=== PATIENT | female | born 1960 | race Caucasian/White ===

== ENCOUNTER → 2016-07-06 | Outpatient (CLI) | payer OTHER ==
[~2016-07-06] MED LIST: AMOX875T PO; CYCL10TA6 PO; GADAVIST IV PRN; LEVO100T7 PO; MULT-506 PO; OMEG10003 PO; OXYC-57 PO; RIZA10TA18 PO; RIZA10TA18 SL
--- NOTE | 2016-07-06 14:34 | DIAGNOSTIC IMAGING REPORT ---
LUMBAR SPINE MRI WITH AND WITHOUT CONTRAST HISTORY: Back pain. M54.16 Lumbar radiculopathy TECHNIQUE: Multiplanar multisequence MRI of the lumbar spine was performed both before and after the intravenous administration of contrast. COMPARISON: None. FINDINGS: For the purpose of the report the L5-S1 disc space will be located on axial image 27 of 30. Findings consistent with a posterior laminectomy and fusion at L4-L5. Disc spacers present at the L4-L5 disc level. Remaining vertebral bodies are unremarkable. There is no evidence for bone marrow replacing process. Is no evidence for abnormal postcontrast enhancement based on the sagittal scans. L1-L2: No significant central canal or neural foraminal narrowing. L2-L3: No significant central canal or neural foraminal narrowing. L3-L4: No significant central canal or neural foraminal narrowing. L4-L5: Posterior laminectomy and fusion. No evidence for abnormal postcontrast enhancement. L5-S1: No significant central canal or neural foraminal narrowing. IMPRESSION: 1. Operative changes consistent with an L4-L5 fusion. 2. No evidence for abnormal postcontrast enhancement. 3. No evidence for disc herniation or significant spinal stenotic change 4. Moderate degenerative change posterior facets L5-S1 Electronically signed by: Florentin Mccarthy M.D. 07/06/2016 2:33 PM Dictated Date/Time: 07/06/2016 2:28 PM
--- NOTE | 2016-07-06 15:03 | DIAGNOSTIC IMAGING REPORT ---
MRI OF THE CERVICAL SPINE COMBO CLINICAL HISTORY: Cervical radiculopathy. COMPARISON STUDY: MRI of the cervical spine dated 03/07/2014. TECHNIQUE: MRI of the cervical spine is performed utilizing various T1 and T2-weighted sequences in the axial and sagittal planes. Contrast-enhanced sequences are acquired following the IV administration of 6 cc of Gadavist. FINDINGS: Cervical spine: Vertebral body height and alignment are maintained throughout the cervical spine. Normal marrow signal intensity is preserved throughout the visualized bony structures. The atlantodental articulation appears maintained. The spinous processes are intact. A small hemangioma is noted in the body of T4. Intervertebral discs: There is mild degenerative disc desiccation throughout the cervical spine. There is only minimal loss of height at C5-C6 and C6-C7. Spinal cord: The cervical spinal cord is normal in morphology and signal intensity. No abnormal enhancement is identified on the postcontrast sequences. C2-C3: Unremarkable. C3-C4: Unremarkable. C4-C5: Predominant facet arthropathy causes minimal right-sided neural foraminal narrowing. The central canal is patent. C5-C6: A posterior disc osteophyte complex eccentric to the left abuts the ventral cord. Uncovertebral and facet arthropathy causes mild right greater than left neural foraminal stenosis. C6-C7: A posterior disc osteophyte complex abuts the ventral cord. Uncovertebral and facet arthropathy cause moderate right greater than left neural foraminal stenosis. C7-T1: Unremarkable. Soft tissues: The prevertebral and paraspinous soft tissues are normal as visualized. Brain parenchyma: Partially imaged brain parenchyma at the skull base is within normal limits. IMPRESSION: 1. Cervical spondylosis as above, greatest at C5-C6 and C6-C7. This has only minimally progressed from the 2014 examination. 2. The cervical spinal cord is normal in morphology and signal intensity. Dictated: 07/06/2016 2:40 PM Transcribed: 07/06/2016 3:03 PM [email or web address] Electronically signed by: Fredy Borges M.D. 07/06/2016 3:24 PM Dictated Date/Time: 07/06/2016 2:40 PM
== END | disposition home or self-care (01) ==
LOC: C.MRI 12:55
PROVIDERS: ATTEND Psychiatry & Neurology Neurology
DX: M54.12 Radiculopathy, cervical region (principal); M54.16 Radiculopathy, lumbar region; M51.37 Other intervertebral disc degeneration, lumbosacral region

== ENCOUNTER → 2016-08-31 | Outpatient (CLI) | payer OTHER ==
[~2016-08-31] MED LIST changes: -GADAVIST IV PRN
[2016-08-31 17:30] LABS: BASO % 0.5 %; BASO ABS # 0.03 K/uL (0-0.2); COMPLETE YES; EOS % 1.3 %; HEMATOCRIT 37.6 % (37-47); IG% 0.2 %; LYMPH % 23.9 %; MEAN CELL VOLUME 89.5 fL (80-100); MEAN CORPUSCULAR HEMOGLOBIN 30.2 pg (25-34); MEAN CORPUSCULAR HGB CONC 33.8 g/dl (32-36); MEAN PLATELET VOLUME 9.1 fL (7.4-10.4); MONO % 7.3 %; NEUT % 66.8 %; PLATELET COUNT 377 K/uL (130-400); WHITE BLOOD COUNT 6.28 K/uL (4.8-10.8)
== END | disposition home or self-care (01) ==
LOC: C.LAB1850 16:11
PROVIDERS: ATTEND Internal Medicine
DX: E03.9 Hypothyroidism, unspecified (principal); E53.8 Deficiency of other specified B group vitamins; E55.9 Vitamin D deficiency, unspecified; G43.009 Migraine without aura, not intractable, without status migrainosus; R70.0 Elevated erythrocyte sedimentation rate; R39.9 Unspecified symptoms and signs involving the genitourinary system

== ENCOUNTER 2016-10-05 20:26 | Emergency (ER) | payer OTHER ==
[~2016-10-05] VITALS: Ht 156.2 cm; Wt 66.6 kg
[~2016-10-05 20:26] MED LIST changes: -AMOX875T PO; -LEVO100T7 PO; -RIZA10TA18 PO
[2016-10-05 20:56] VITALS: TEMP 36.8; Ht 156.2 cm; Wt 66.6 kg
[2016-10-05] MEDS ORDERED: SODIUM CHLORIDE 0.9% 1000ML 1,000 ML IV STA (21:53)
[2016-10-05] MEDS ORDERED: PROCHLORPERAZINE 5 MG/ML 2 ML VIAL IV STA (21:53)
[2016-10-05] MEDS ORDERED: KETOROLAC TROMETHAMINE 30 MG/ML VIAL IV STA (21:53)
[2016-10-05] MEDS ORDERED: DiphenhydrAMINE HCL 50 MG/ML VIAL IV STA (21:53)
[2016-10-05] MEDS ORDERED: AMOX875T PO (22:42)
[2016-10-05] MEDS ORDERED: AMOXICIL/CLAVU 875MG HOME PACK PO STA (22:43)
--- NOTE | 2016-10-05 22:43 | EMERGENCY ROOM VISIT NOTE ---
ED Visit Note First contact with patient: 21:45 CHIEF COMPLAINT: Migraine headache HISTORY OF PRESENT ILLNESS: This 56-year-old female patient presented to the emergency department via taxi with a sudden onset of a severe generalized headache that started this morning. The patient states the migraine is similar to their typical migraines, and notes that all of her migraines are of sudden onset. She is tried Maxalt, 2 Sudafed, 2 ibuprofen and Benadryl around 530-6 PM without relief. There has been associated photophobia, phonophobia, nausea and vomiting. This is not the worse headache of her life. She declines narcotic medication and would like the headache cocktail to include Compazine, Benadryl and Toradol. She states she did receive this on a previous visit and in [place] with good relief of her headache. She follows with Dr. Lara, and saw him approximately 3 weeks ago. She denies any fever, chills, chest pain , shortness of breath, abdominal pain, back pain. The patient denies fever or chills recently, and there is no weakness or numbness of the extremities. There is no difficulty with speech or vision. No trauma to the head and no neck pain. The pain is severe, constant, and it is slowly increasing in severity. The patient rates the pain as constant and non-/10. The patient has taken the above listed medications without relief. This is not the worst headache of the life and is similar to previous migraines. Previous imaging studies of the brain have been reviewed. REVIEW OF SYSTEMS: A review of systems was performed with positives and pertinent negatives listed in the history of present illness. All other systems were reviewed and are negative. ALLERGIES: As noted below MEDICATIONS: As noted below PMH: Migraines, 13 surgeries SOCIAL HISTORY: Patient lives at home with self and denies tobacco and alcohol use. PHYSICAL EXAM: Vital Signs: Reviewed Nurse's notes, vital signs stable. GENERAL : 56-year-old female, who appears in pain, but non toxic in appearance and in no acute distress. MENTAL STATUS: Alert, oriented, and coherent. HEENT: Normocephalic. PERRLA. EOMI. Nares patent without nuchal rigidity. Tympanic membranes pearly hardy without erythema or effusion bilaterally. Mucous membranes moist. NECK: Supple, no nuchal rigidity, nontender, no lymphadenopathy. HEART: Regular rhythm and normal rate without murmurs, ectopy, gallops, or rubs. LUNGS: Clear to auscultation bilaterally without wheezes, rales or rhonchi. No dullness to percussion. No accessory muscle use. No retractions. SKIN: Normal. NEUROLOGICAL: Pupils are round, equal and react to light.The patient moves all extremities well and the gait is normal. EMERGENCY DEPARTMENT COURSE: I examined the patient. The patient has been here for migraines in the past, and states this is a typical migraine for her. She is seeking help with the pain that is not alleviated by [id number] medication. She requests a headache cocktail to include items such as Compazine , Benadryl and Toradol and specific states she does not want narcotic medication. I reviewed her previous imaging studies, and do not believe that an ear warranted at this time. She does not have any fever or chills. There is no evidence of emergent cause of the headache at this time. She will be treated with 30 mg of Toradol IV, as it has been 4 hours since she had taken the other NSAIDs, she'll be given 25 mg of Benadryl IV as well as 10 mg of Compazine and hydrated with 1 L of normal saline. She was reevaluated and stated that her headache has significantly improved, and that her pain was a 0/ 10. The differential diagnosis includes acute intracranial bleed, meningitis, encephalitis, mass or mass effect, sinusitis, infection, tumor, headache, temporal arteritis and carbon monoxide exposure, and migraine. Prior to discharge the patient noted that she was experiencing sinus congestion for the past 10 days, and had yellowish greenish drainage from the nose. Chest congestion has diminished. She is concerned about acute sinusitis. For this I will be treating her with Augmentin 10 days. 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 In the evaluation and treatment of this patient, the following differential diagnoses were considered: Migraine Headache, Intracranial Hemorrhage, Subdural Hematoma, Subarachnoid Hemorrhage, Cerebral Aneurysm, Temporal/Giant Cell Arteritis, Tension Headache, Meningitis, Encephalitis, or Hydrocephalus. Problem List Medical Problems: (1) Anxiety State Nos Status: Chronic (2) Baseline Right Leg Weakness Status: Chronic (3) Cervicalgia Status: Chronic (4) Chronic Back Problems with Multiple Surgeries Status: Chronic (5) Depressive Disorder Nec Status: Chronic (6) Hypothyroidism Nos Status: Chronic (7) Lumbago Status: Chronic (8) Migraine Status: Chronic (9) RECOTOCELE Status: Chronic (10) RECTOCELE Status: Resolved (11) Sinusitis Status: Chronic Current/Historical Medications Scheduled Amoxicillin & Pot Clavulanate (Augmentin 875-125 mg), 1 TAB PO BID Cyclobenzaprine Hcl (Flexeril), 10 MG PO QID Multivitamin (Multivitamin), 1 TAB PO DAILY [place]-3 Fatty Acids ([place] Oil-1000), 1,000 MG PO TID Scheduled PRN Oxycodone/Acetaminophen 5MG/325MG (Percocet 5MG/325MG), 0.5-2 TABLETS PO for Pain Miscellaneous Medications Rizatriptan Benzoate (Maxalt), 10 MG SL Allergies Coded Allergies: CI Pigment Blue 63 (Verified Allergy, Severe, RASH AND SWELLING, 02/25/16) Ciprofloxacin (Verified Allergy, Severe, RED, SWOLLEN ARM, 02/25/16) Duloxetine (Verified Allergy, Severe, RASH AND SWELLING, 02/25/16) Topiramate (Verified Allergy, Mild, RASHES, 02/25/16) Gabapentin (Verified Allergy, Unknown, RASH AND SWELLING, 02/25/16) Vital Signs Date Time Temp Pulse Resp B/P Pulse Ox O2 Delivery O2 Flow Rate FiO2 10/05/16 23:00 91 20 110/88 98 Room Air 10/05/16 20:56 36.8 101 19 119/88 99 Room Air Medications Administered Medications (Trade) Dose Ordered Sig/Diane Route Start Time Stop Time Status Last Admin Dose Admin Prochlorperazine Edisylate (Compazine Inj) 10 mg NOW STAT IV 10/05/16 21:53 10/05/16 21:55 DC 10/05/16 22:16 10 MG Diphenhydramine HCl (Benadryl Inj) 25 mg NOW STAT IV 10/05/16 21:53 10/05/16 21:55 DC 10/05/16 22:17 25 MG Ketorolac Tromethamine 30 mg 30 mg NOW STAT IV 10/05/16 21:53 10/05/16 21:55 DC 10/05/16 22:17 30 MG Sodium Chloride (Nss 1000ml) 1,000 ml @ 999 mls/hr Q1H1M STAT IV 10/05/16 21:53 10/05/16 22:53 DC 10/05/16 22:20 999 MLS/HR Amoxicillin/ Clavulanate Potassium (Augmentin 875MG Home Pack) 1 homepack UD STAT PO 10/05/16 22:43 10/05/16 22:44 DC 10/05/16 23:03 1 HOMEPACK Departure Information Impression Primary Impression: Headache Additional Impression: Sinusitis Dispostion Home / Self-Care Condition GOOD Prescriptions Amoxicillin & Pot Clavulanate (Augmentin 875-125 mg) 1 Tab Tab 1 TAB PO BID for 9 Days, #18 TAB Prov: Marcelo Zamarripa PA-C 10/05/16 Referrals RV. Reese MD (PCP) Patient Instructions My [facility] Additional Instructions You have been treated in the Emergency Department for a Headache and sinus infection. You have received pain medicine in the emergency department which impairs your ability to operate a vehicle. It is illegal for you to drive after receiving these medicines. You have been prescribed Augmentin. This is one tablet every 12 hours for 10 days. This is an antibiotic to help treat the sinus infection. For pain control, you can use the following qxxy-zad-unfiqjj medicines (if >12 yo): - Regular strength (325mg/tab) Tylenol (acetaminophen) 2 tabs every 4-6 hours as needed. Do not exceed 12 tablets in a 24 hour period. Avoid taking more than 3 grams 3000 mg) of Tylenol per day. This includes any other sources of acetaminophen you may take on a regular basis. - Regular strength (200 mg/tab) Advil (ibuprofen) 1-2 tabs every 4-6 hours as needed. Do not exceed a dose of 3200 mg per day. You should relax in a quiet, dark place for the rest of the day. Avoid any possible triggers including: cigarette smoke, caffeine, nicotine, chocolate, wine, beer, loud noises or music, or bright lights. You should schedule a follow-up appointment in 2-3 days with your Primary Care Provider or established Neurologist for further evaluation and treatment of your Headache. Return to the Emergency Department if your current symptoms worsen despite treatment course outlined above, or if you develop any of the following symptoms : intractable pain despite aforementioned treatment course, visual disturbances , loss of vision, unilateral weakness or facial drooping, slurring of speech, loss of coordination, or loss of consciousness. Please return to the emergency department with any new/concerning symptoms. Problem Qualifiers
[2016-10-05 23:00] VITALS: BP 110/88; PULSE 91; O2SAT 98
[2016-11-12] MEDS ORDERED: LEVO100T7 PO (09:19)
[2016-11-12] MEDS ORDERED: RIZA10TA18 PO (09:19)
== END 2016-10-05 23:10 | disposition home or self-care (01) ==
LOC: C.EDB 20:29 → C.EDD 23:10
DX: R51 Headache (principal); J32.9 Chronic sinusitis, unspecified

== ENCOUNTER → 2016-10-05 | Outpatient (CLI) | payer OTHER | END | disposition home or self-care (01) | LOC: C.PAPS 12:39 | PROVIDERS: ATTEND Obstetrics & Gynecology | DX: Z12.4 Encounter for screening for malignant neoplasm of cervix (principal) ==

== ENCOUNTER → 2016-12-22 | Outpatient (CLI) | payer OTHER ==
[~2016-12-22] MED LIST changes: +LEVO100T7 PO; +RIZA10TA18 PO; -RIZA10TA18 SL
[2016-12-22 17:20] LABS: BASO % 0.6 %; BASO ABS # 0.03 K/uL (0-0.2); COMPLETE YES; EOS % 1.7 %; HEMATOCRIT 38.6 % (37-47); IG% 0.2 %; LYMPH % 29.3 %; LYMPH ABS # 1.56 K/uL (1.2-3.4); MEAN CELL VOLUME 88.5 fL (80-100); MEAN CORPUSCULAR HEMOGLOBIN 29.6 pg (25-34); MEAN CORPUSCULAR HGB CONC 33.4 g/dl (32-36); MEAN PLATELET VOLUME 8.6 fL (7.4-10.4); MONO % 9.4 %; NEUT % 58.8 %; PLATELET COUNT 343 K/uL (130-400); RED BLOOD COUNT 4.36 M/uL (4.2-5.4); WHITE BLOOD COUNT 5.32 K/uL (4.8-10.8)
== END | disposition home or self-care (01) ==
LOC: C.LAB1850 15:59
PROVIDERS: ATTEND Obstetrics & Gynecology
DX: E03.9 Hypothyroidism, unspecified (principal); Z01.818 Encounter for other preprocedural examination

== ENCOUNTER → 2017-01-13 | Day surgery (SDC) | payer OTHER ==
[2016-11-12 09:20] VITALS: Ht 156.2 cm; Wt 61.4 kg
--- NOTE | 2016-12-24 19:56 | History and Physical: Surg Cnt ---
History & Physical Date Dec 24, 2016. Chief Complaint endometrial mass History of Present Illness The patient is a 56 year old female who has a hx of DUB/MR. She has a known endometrial mass which is likely a polyp discovered initially in 2013, confirm again in 2016. Recommend removal at that time and surgery scheduled but unable to perform secondary to family issues. Patient is ready to proceed now. Recent SIS confirms presence of polyp and it is slightly larger. Past Medical/Surgical History Medical Problems: (1) Anxiety State Nos (2) Baseline Right Leg Weakness (3) Cervicalgia (4) Chronic Back Problems with Multiple Surgeries (5) Depressive Disorder Nec (6) Hypothyroidism Nos (7) Lumbago (8) Migraine (9) cystocele with uterine prolapse (10) hx of Sinusitis allergies, gerd, hyperlipidemia psxhx multiple back surgeries abdominoplasty cholecystectomy hernia repair posterior repair removal of breast lump tubal ligation Additional History Hepatic Disease: No Endocrine Disorder: Yes (addy's thyroditis) Kidney Disease: No Hypertension: No Heart Disease: No Bleeding Tendencies: No Infectious Diseases: No Allergies Coded Allergies: CI Pigment Blue 63 (Verified Allergy, Severe, RASH AND SWELLING, 11/12/16) Ciprofloxacin (Verified Allergy, Severe, RED, SWOLLEN ARM, 11/12/16) Duloxetine (Verified Allergy, Severe, RASH AND SWELLING, 11/12/16) Topiramate (Verified Allergy, Mild, RASHES, 11/12/16) Gabapentin (Verified Allergy, Unknown, RASH AND SWELLING, 11/12/16) Iodinated Diagnostic Agents (Verified Allergy, Unknown, UNSURE, 11/12/16) Home Medications Scheduled Cyclobenzaprine Hcl (Flexeril), 10 MG PO QID Levothyroxine Sodium (Levothyroxine Sodium), 1 TAB PO QAM Multivitamin (Multivitamin), 1 TAB PO QAM [place]-3 Fatty Acids ([place] Oil-1000), 1,000 MG PO QAM Scheduled PRN Oxycodone/Acetaminophen 5MG/325MG (Percocet 5MG/325MG), 0.5-2 TABLETS PO for Pain Rizatriptan Benzoate (Maxalt), 10 MG PO DIRECTED PRN for Migraine Physical Examination Skin: warm/dry Neck: supple, no adenopathy Respiratory/Chest: lungs clear, normal breath sounds Cardiovascular: regular rate, rhythm Abdomen / GI: non tender, + pertinent finding (soft, nondistended) Extremities: normal inspection Neurologic/Psych: alert, oriented x 3 Diagnosis endometrial mass Plan of Treatment Plan to proceed with HSC/D&C removal of mass. The risks of the surgery were discussed including bleeding, transfusion, poor wound healing, 1% chance or perforation with need for further surgery, damage to surrounding structures. The risks of any surgery were discussed with the patient including heart attack , blood clot, stroke and . questions were asked and answered and consent reviewed and signed.
[~2017-01-13] VITALS: Ht 156.2 cm; Wt 61.4 kg
[~2017-01-13] MED LIST changes: +ATROPINE SULFATE 0.1 MG/ML 5ML SYR IV PRN; +EpHEDrine SULFATE INJ 50 MG/ML AMP IV PRN; +FENTANYL CITRATE INJ 50 MCG/1 ML 2 ML VIAL IV PRN; +FENTANYL CITRATE INJ 50 MCG/1 ML 2 ML VIAL ONE; +HYDROCODONE/ACETAMOPHEN 5/325MG TAB PO PRN; +HYDROmorphone INJ 1 MG/ML SYR IV PRN; +IBUPROFEN 600 MG TAB PO PRN; +KETOROLAC TROMETHAMINE 30 MG/ML VIAL IV. PRN; +LACTATED RINGER'S 1000ML 1,000 ML IV SCH; +LIDOCAINE HCL 2% 2 ML VIAL (20MG/ML) ONE; +MIDAZOLAM HCL 1 MG/ML 2ML VIAL ONE; +MoRPHine SULFATE 2 MG/ML CARP IV PRN; +MoRPHine SULFATE 4 MG/ML 1 ML CARP\\VIAL IV PRN; +ONDANSETRON INJ 2 MG/ML 2 ML VIAL IV PRN; +ONDANSETRON INJ 2 MG/ML 2 ML VIAL ONE; +OXYCODONE/ACETAMINOPHEN 5-325 TAB PO PRN; +PROPOFOL IV EMULSION 10 MG/ML 20 ML VIAL IV ONE; +SODIUM CHLORIDE 0.9% 1000ML 1,000 ML IV SCH
--- NOTE | 2017-01-13 13:15 | History & Physical Bridge - SC ---
H&P Re-Evaluation Bridge Note: I have examined the patient, reviewed the History & Physical and in the interval since the performance of the History & Physical I have noted the following changes of clinical significance: No changes noted
--- NOTE | 2017-01-13 14:18 | Discharge Instructions-SurgCtr ---
Discharge Instructions Date of Service Jan 13, 2017. Visit Reason for Visit: Endometrial Mass Discharge Discharge Diagnosis / Problem: s/p D&C/hysteroscoy and removal of masses Discharge Goals Goal(s): Specific goals Activity Recommendations Activity Limitations: per Instructions/Follow-up section Anesthesia . Post Anesthesia Instructions: If you have had General Anesthesia or IV Sedation: * Do not drive today. * Resume driving when surgeon permits. * Do not make important decisions or sign legal documents today. * Call surgeon for: 1. Temperature elevations greater than 101 degrees F. 2. Uncontrollable pain. 3. Excessive bleeding. 4. Persistent nausea and vomiting. 5. Medication intolerance (nausea, vomiting or rash). * For nausea and vomiting use only clear liquids such as: tea, soda, bouillon until nausea subsides, then gradually increase diet as tolerated. * If you have any concerns or questions, call your surgeon's office. If physician is unavailable and it is an emergency, call 911 or go to the nearest emergency room. . Instructions / Follow-Up Instructions / Follow-Up ACTIVITY RECOMMENDATIONS: * Avoid tampons, douching, hot tubs, pools, and intercourse until bleeding has stopped. * May shower as usual. * No strenuous activity for 24-48 hours. After 24-48 hours, you may do anything you feel like doing (driving and sports are okay). SPECIAL CARE INSTRUCTIONS: Special Diet: * Mild nausea may occur in the immediate post-operative period. * Take clear liquids such as tea, cola or bouillon until all nausea has subsided; you may then resume your normal diet. Special Care: * Light bleeding and vaginal spotting can last from a few days to 3-4 weeks. Call your doctor if bleeding becomes heavier than the heaviest part of your period. * Check your temperature twice a day for one week. If it goes above 100.4 degrees Fahrenheit (38.0 Celsius), notify your doctor. * Call your doctor's office for an appointment for 6 weeks after your surgery. FOLLOW-UP VISIT: Call your doctor's office for an appointment for 6 weeks after your surgery. Diet Recommendations Home Diet: no limitations, resume previous diet Procedures Procedures Performed: Dilatation And Curettage, Hysteroscopy, Polypectomy with Myosure Pending Studies Studies pending at discharge: no Medical Emergencies . Who to Call and When: Medical Emergencies: If at any time you feel your situation is an emergency, please call 911 immediately. . Non-Emergent Contact Non-Emergency issues call your: Elevator Mechanic Apprentice . . "Provider Documentation" section prepared by Shereen Benitez. .
--- NOTE | 2017-01-13 14:19 | [facility] Post Operative Brief Note ---
Immediate Operative Summary Operative Date Jan 13, 2017. Pre-Operative Diagnosis Endometrial mass Post-Operative Diagnosis SAme as pre-op Procedure(s) Performed Dilatation And Curettage, Hysteroscopy, Polypectomy with Myosure Surgeon Dr. Benitez Director Fixed Income Surgeon(s) None Estimated Blood Loss 5ML Findings uterine cavity with 2 masses, sounded to 8cm Fluids (cc crystalloids) 600cc ivf, 100cc deficit Specimens A.Endometrial currettings and polyps Drains none Anesthesia lma Complication(s) None Disposition Recovery Room / PACU
--- NOTE | 2017-01-13 14:53 | OPERATIVE REPORT ---
DATE OF OPERATION: 01/13/2017 PREOPERATIVE DIAGNOSES: Endometrial masses. POSTOPERATIVE DIAGNOSIS: Same. PROCEDURE: D&C, hysteroscopy with polypectomy via MyoSure. SURGEON: Dr. Benitez. ANESTHESIA: General per laryngeal mask. ESTIMATED BLOOD LOSS: 5 mL. FLUIDS: 600 mL of IV fluid and 100 mL of hysteroscopic fluid deficit. URINE OUTPUT: 50 mL of clear yellow urine drained from the bladder at the end of the procedure. INDICATIONS: The patient is a 56-year-old perimenopausal female who about 2 years ago had a workup for dysfunctional uterine bleeding and was found to have polyps. She is now finally returning to the operating room to have these removed. FINDINGS: Uterus sounded to 8 cm. The endometrium contained 2 polyps which were removed with MyoSure and otherwise appeared normal. COMPLICATIONS: None. DRAINS: None. DISPOSITION: To recovery room in stable condition. OPERATION AND FINDINGS: PROCEDURE: The patient was taken to the operating room where she was identified verbally and by bracelet. She was placed in dorsal supine position where general anesthesia was induced without difficulty. She was then placed in dorsal lithotomy position in [facility] stirrups and prepped and draped in normal sterile fashion. Timeout was held identifying correct patient, procedure and positioning. Exam under anesthesia revealed a small anteverted uterus. The uterine cervix does prolapse to the introitus after the [place]is was introduced to the cervix and the cervix was pulled. The bladder was drained of about 50 mL of urine. A weighted speculum was placed in the posterior vagina. The anterior lip of the cervix was grasped with a single tooth tenaculum. Uterus was dilated to a [place] 25. Hysteroscope was introduced with the above noted findings. The MyoSure was introduced and all polyps were removed until the cavity was smooth. The scope was removed and curettaged was performed in 365 degrees and the procedure was thus terminated. All instruments were removed from the vagina. Hemostasis was noted to be excellent. All sponge, lap and needle counts were correct x2. The patient tolerated the procedure well and was taken to recovery room in stable condition. I attest to the content of the Intraoperative Record and any orders documented therein. Any exception s are noted below.
--- NOTE | 2017-01-13 14:57 | Anesthesia Progress Nt - [facility] ---
Anesthesia Post Op Note Date & Time Jan 13, 2017 at 14:56 Vital Signs Pain Intensity: 0 Vital Signs Past 12 Hours Date Time Temp Pulse Resp B/P (MAP) Pulse Ox O2 Delivery O2 Flow Rate FiO2 01/13/17 14:51 72 14 80/66 (70) 99 01/13/17 14:51 73 14 01/13/17 14:46 83 11 98/63 (75) 97 01/13/17 14:46 84 11 01/13/17 14:44 Room Air 01/13/17 14:41 90 20 108/63 (79) 98 01/13/17 14:41 89 20 01/13/17 14:36 98 14 01/13/17 14:36 93 14 88/74 (77) 99 01/13/17 14:31 97 17 01/13/17 14:31 97 17 108/55 (88) 100 01/13/17 14:29 102/62 (76) 01/13/17 14:26 37 89 16 102/62 96 Diffusion Mask 5 01/13/17 12:53 36.9 97 16 125/77 (93) 98 Room Air Notes Mental Status: alert / awake / arousable, participated in evaluation Pt Amnestic to Procedure: Yes Nausea / Vomiting: adequately controlled Pain: adequately controlled Airway Patency, RR, SpO2: stable & adequate BP & HR: stable & adequate Hydration State: stable & adequate Anesthetic Complications: no major complications apparent Patient awake. Conversant. Denies nausea. sitting upright in bed without complaints of vision changes, dizziness, chest pain, shortness of breath or lightheadedness. Patient plans on changing and will soon be discharged. no concerns regarding her anesthetic care.
[2017-01-13 15:20] VITALS: BP 106/73; PULSE 71; O2SAT 97
== END | disposition home or self-care (01) ==
LOC: X.SURG 12:42
PROVIDERS: ATTEND Obstetrics & Gynecology
DX: N84.0 Polyp of corpus uteri (principal); E03.9 Hypothyroidism, unspecified; F32.9 Major depressive disorder, single episode, unspecified; F41.9 Anxiety disorder, unspecified; Z79.899 Other long term (current) drug therapy

== ENCOUNTER → 2017-01-28 | Outpatient (CLI) | payer OTHER ==
[~2017-01-28] MED LIST changes: -ATROPINE SULFATE 0.1 MG/ML 5ML SYR IV PRN; -EpHEDrine SULFATE INJ 50 MG/ML AMP IV PRN; -FENTANYL CITRATE INJ 50 MCG/1 ML 2 ML VIAL IV PRN; -FENTANYL CITRATE INJ 50 MCG/1 ML 2 ML VIAL ONE; -HYDROCODONE/ACETAMOPHEN 5/325MG TAB PO PRN; -HYDROmorphone INJ 1 MG/ML SYR IV PRN; -IBUPROFEN 600 MG TAB PO PRN; -KETOROLAC TROMETHAMINE 30 MG/ML VIAL IV. PRN; -LACTATED RINGER'S 1000ML 1,000 ML IV SCH; -LIDOCAINE HCL 2% 2 ML VIAL (20MG/ML) ONE; -MIDAZOLAM HCL 1 MG/ML 2ML VIAL ONE; -MoRPHine SULFATE 2 MG/ML CARP IV PRN; -MoRPHine SULFATE 4 MG/ML 1 ML CARP\\VIAL IV PRN; -ONDANSETRON INJ 2 MG/ML 2 ML VIAL IV PRN; -ONDANSETRON INJ 2 MG/ML 2 ML VIAL ONE; -OXYCODONE/ACETAMINOPHEN 5-325 TAB PO PRN; -PROPOFOL IV EMULSION 10 MG/ML 20 ML VIAL IV ONE; -SODIUM CHLORIDE 0.9% 1000ML 1,000 ML IV SCH
--- NOTE | 2017-01-28 13:59 | MAMMOGRAPHY REPORT ---
BILATERAL DIGITAL DIAGNOSTIC MAMMOGRAM TOMOSYNTHESIS WITH CAD AND TARGETED BILATERAL ULTRASOUND: 01/28 CLINICAL HISTORY: The patient reports constant pain involving bilateral nipples and areolar regions f or approximately 2 months. Now the pain is more diffuse and bilateral. She denies any palpable lump s or nipple discharge or any erythema or scaling of the nipples. TECHNIQUE: Breast tomosynthesis in addition to standard 2D mammography was performed. Current study was also evaluated with a Computer Aided Detection (CAD) system. Bilateral CC and MLO 2-D and tomosy nthesis images were obtained. COMPARISON: Comparison is made to exams dated: 12/13/2014 mammogram, 07/20/2013 mammogram, 09/10/2011 [facility], 12/01/2006, and 12/01/2006. BREAST COMPOSITION: There are scattered areas of fibroglandular density in both breasts. FINDINGS: There are no suspicious masses, calcifications, or areas of architectural distortion noted mammographically. There has been no significant interval change compared to prior exams. Targeted ultrasound was performed of bilateral subareolar regions at the sites of the pain pointed ou t by the patient. Sonographically normal tissue is seen in bilateral subareolar regions, without niki dence of a mass or other suspicious sonographic abnormality. IMPRESSION: ACR BI-RADS CATEGORY 2: BENIGN, TARGETED ULTRASOUND ACR BI-RADS CATEGORY 2: BENIGN No suspicious mammographic or sonographic abnormality to explain bilateral breast pain, predominantly involving the nipple-areolar complexes. There is no mammographic or targeted sonographic evidence o f malignancy. Recommend clinical follow-up for bilateral breast pain, and recommend routine bilatera l screening mammograms in one year. The patient has been verbally notified of the results. Approximately 10% of breast cancers are not detected with mammography. A negative mammographic report should not delay biopsy if a clinically suggestive mass is present. Aide Juarez M.D. /:01/28/2017 09:38:44 Toddler Caregiver: Daxa BROWER)(M), [facility] letter sent: Normal 1/2 BI-RADS Code: ACR BI-RADS Category 2: Benign Ultrasound BI-RADS: ACR BI-RADS Category 2: Benign
== END | disposition home or self-care (01) ==
LOC: C.MAMM 08:59
PROVIDERS: ATTEND Physician Assistant
DX: N64.4 Mastodynia (principal)

== ENCOUNTER → 2017-06-14 | Outpatient (CLI) | payer OTHER ==
[~2017-06-14] MED LIST changes: +GADAVIST IV PRN
--- NOTE | 2017-06-14 09:59 | DIAGNOSTIC IMAGING REPORT ---
LUMBAR SPINE COMBINATION HISTORY: Back pain. Neuropathy. Urinary retention. rinary [id number] Sacral radiculopathyPrevious surgery. You TECHNIQUE: Multiplanar multisequence MRI of the lumbar spine was performed both before and after the intravenous administration of contrast. COMPARISON: 07/06/2016 FINDINGS: For the purpose of the report the L5-S1 disc space will be located on axial image 23 of 25. Postoperative changes consistent with laminectomy and fusion at L4-L5. This is unchanged in the prior study. Signal characteristics of the vertebral bodies are unremarkable throughout. Postoperative changes seen at L4 and L5. L1-L2: No significant central canal or neural foraminal narrowing. L2-L3: No significant central canal or neural foraminal narrowing. L3-L4: No significant central canal or neural foraminal narrowing. L4-L5: Postoperative changes with no significant spinal stenotic change or recurrent disc herniation. L5-S1: No significant central canal or neural foraminal narrowing. IMPRESSION: 1. Stable postoperative changes consistent with a pre-existing L4-L5 laminectomy and fusion. 2. No abnormal postcontrast enhancement. 3. No significant disc herniation or spinal stenotic change. The above report was generated using voice recognition software. It may contain grammatical, syntax or spelling errors. Electronically signed by: Florentin Mccarthy M.D. 06/14/2017 9:58 AM Dictated Date/Time: 06/14/2017 9:51 AM
--- NOTE | 2017-06-14 10:16 | DIAGNOSTIC IMAGING REPORT ---
L-SPINE MIN 4 VIEWS ROUTINE HISTORY: Pain LOW BACK PAIN COMPARISON: None. FINDINGS: Posterior laminectomy and fusion L4-L5. Disc spacers present. Alignment is anatomic. No subluxation. Disc spaces are preserved. IMPRESSION: No fracture or subluxation within the lumbar spine. Anatomic alignment post L4-L5 laminectomy and fusion. No acute process. The above report was generated using voice recognition software. It may contain grammatical, syntax or spelling errors. Electronically signed by: Florentin Mccarthy M.D. 06/14/2017 10:15 AM Dictated Date/Time: 06/14/2017 10:14 AM
== END | disposition home or self-care (01) ==
LOC: C.MRIBC 08:40
PROVIDERS: ATTEND Psychiatry & Neurology Neurology
DX: M54.18 Radiculopathy, sacral and sacrococcygeal region (principal); R33.9 Retention of urine, unspecified

== ENCOUNTER → 2017-06-28 | Outpatient (CLI) | payer OTHER ==
--- NOTE | 2017-06-28 11:02 | DIAGNOSTIC IMAGING REPORT ---
PELVIS MRI WITH AND WITHOUT INTRAVENOUS CONTRAST HISTORY: LOW BACK PAIN, NUMBNESS OF LEGS TECHNIQUE: Multiplanar multisequence MRI of the pelvis was performed both before and after the intravenous contrast. COMPARISON STUDY: Lumbar spine 06/14/2017. FINDINGS: No fracture or dislocation within the pelvis or hips. Normal marrow signal intensity seen within the pelvis and hips. The sacrum appears intact. Bilateral sacroiliac joints are within normal limits. No presacral soft tissue edema. Small amount of thin and ovarian cysts. The bladder is unremarkable. No significant pelvic free fluid. L4-5 posterior decompression fusion is again noted. The sacral canal and bilateral sacral neural foramina appear widely patent. IMPRESSION: 1. No significant abnormality identified within the pelvis or hips. 2. L4-L5 posterior decompression and fusion is again noted. Electronically signed by: Tani Oneil M.D. 06/28/2017 11:01 AM Dictated Date/Time: 06/28/2017 10:42 AM
== END | disposition home or self-care (01) ==
LOC: C.MRIBC 08:06
PROVIDERS: ATTEND Psychiatry & Neurology Neurology
DX: M54.5 Low back pain (principal); R20.0 Anesthesia of skin

== ENCOUNTER 2017-08-14 09:10 | Emergency (ER) | payer OTHER ==
[~2017-08-14] VITALS: Ht 154.9 cm; Wt 69.1 kg
[~2017-08-14 09:10] MED LIST changes: -GADAVIST IV PRN
[2017-08-14 09:16] VITALS: Ht 154.9 cm; Wt 69.1 kg
[2017-08-14] MEDS ORDERED: PROCHLORPERAZINE 5 MG/ML 2 ML VIAL IV STA (09:23)
[2017-08-14] MEDS ORDERED: DiphenhydrAMINE HCL 50 MG/ML VIAL IV STA (09:23)
[2017-08-14] MEDS ORDERED: SODIUM CHLORIDE 0.9% 1000ML 1,000 ML IV STA (09:23)
[2017-08-14] MEDS ORDERED: MAGNESIUM SULFATE 1GM / D5W 1 GM BAG IV STA (09:23)
[2017-08-14] MEDS ORDERED: KETOROLAC TROMETHAMINE 30 MG/ML VIAL IV STA (09:23)
[2017-08-14 09:36] LABS: BASO % 0.4 %; BASO ABS # 0.03 K/uL (0-0.2); EOS % 0.9 %; EOS ABS # 0.07 K/uL (0-0.5); HEMATOCRIT 40.5 % (37-47); HEMOGLOBIN 13.7 g/dL (12.0-16.0); IG# 0.01 K/uL (0.00-0.02); LYMPH % 11.1 %; LYMPH ABS # 0.82 K/uL (1.2-3.4); MEAN CELL VOLUME 86.9 fL (80-100); MEAN CORPUSCULAR HEMOGLOBIN 29.4 pg (25-34); MEAN CORPUSCULAR HGB CONC 33.8 g/dl (32-36); MEAN PLATELET VOLUME 8.8 fL (7.4-10.4); MONO % 5.4 %; NEUT % 82.1 %; NEUT ABS # 6.07 K/uL (1.4-6.5); PLATELET COUNT 320 K/uL (130-400); RED CELL DISTRIBUTION WIDTH CV 12.9 % (11.5-14.5)
--- NOTE | 2017-08-14 09:46 | DIAGNOSTIC IMAGING REPORT ---
HEAD WITHOUT CONTRAST (CT) CLINICAL HISTORY: 57 years-old Female with Pt c/o Rt eye pain. Acute headache with right eye pain TECHNIQUE: Multiple axial CT images of the head were obtained without contrast. A dose lowering technique was utilized adhering to the principles of ALARA. CT DOSE: 537.48 mGy.cm COMPARISON: CT head 05/22/2012. FINDINGS: No acute intracranial hemorrhage, midline shift, intracranial mass, hydrocephalus, territorial ischemia or abnormal extra-axial collection. Ill-defined areas of low-attenuation within the periventricular white matter suggests chronic microvascular ischemic changes. The calvarium is intact. The paranasal sinuses, mastoid air cells, and middle ear cavities are clear. Bilateral shekhar bullosa. Soft tissues are unremarkable. The orbits are symmetric and normal limits. IMPRESSION: No acute intracranial abnormality. The above report was generated using voice recognition software. It may contain grammatical, syntax or spelling errors. Electronically signed by: Jared Tolentino M.D. 08/14/2017 9:45 AM Dictated Date/Time: 08/14/2017 9:43 AM
[2017-08-14 09:52] LABS: ALBUMIN 3.8 gm/dl (3.4-5.0); CREATININE 0.94 mg/dl (0.60-1.20); POTASSIUM 3.6 mmol/L (3.5-5.1)
[2017-08-14 09:55] LABS: TOTAL PROTEIN 7.5 gm/dl (6.4-8.2)
[2017-08-14] MEDS ORDERED: SODIUM CHLORIDE 0.65% NA SOLN 45 ML (OCEAN) STA (10:00)
[2017-08-14] MEDS ORDERED: DEXAMETHASONE INJ 10 MG in SYRINGE 0 ML IV STA (10:05)
[2017-08-14] MEDS ORDERED: VALPROATE SOD IV 500 MG in DEXTROSE 5% 50ML 50 ML IV STA (10:05)
[2017-08-14 10:25] LABS: INFLUENZA B ANTIGEN Neg for Influ B (NEG)
[2017-08-14] MEDS ORDERED: AMOXICILLIN/CLAVULANATE TAB 875 MG TAB PO ONE (10:30)
[2017-08-14] MEDS ORDERED: DEXAMETHASONE SOD INJ 4 MG/ML VIAL IV ONE (10:30)
--- NOTE | 2017-08-14 10:30 | EMERGENCY ROOM VISIT NOTE ---
History Report prepared by Rhoda: Darren Barton Under the Supervision of: Dr. Anthony Iraheta M.D. First contact with patient: 09:23 Chief Complaint: HEADACHE Stated Complaint: MIGRAINE,VISION CHANGE History of Present Illness The patient is a 57 year old female who presents to the Emergency Room with complaints of a worsening migraine headache that began recently. Patient describes the headache as extreme pressure on the right side of her head. Patient adds that she has neck pain but that it is chronic and not out of the ordinary. Patient states that she took medication at home but it did not relieve the symptoms. Patient adds that she has a history of migraines and sinus infections. Source of History: patient Onset: Recent Position: head Quality: pressure Timing: worsening Modifying Factors (Relieving): other (None) Associated Symptoms: + neck pain Review of Systems See HPI for pertinent positives & negatives. A total of 10 systems reviewed and were otherwise negative. Past Medical & Surgical Medical Problems: (1) Anxiety State Nos (2) Baseline Right Leg Weakness (3) Cervicalgia (4) Chronic Back Problems with Multiple Surgeries (5) Depressive Disorder Nec (6) Hypothyroidism Nos (7) Lumbago (8) Migraine (9) RECOTOCELE (10) RECTOCELE (11) Sinusitis Family History Gallbladder disease Social History Smoking Status: Former Smoker Alcohol Use: none Drug Use: none Marital Status: single Housing Status: unknown Occupation Status: employed Current/Historical Medications Scheduled Amoxicillin & Pot Clavulanate (Augmentin 875-125 mg), 1 TAB PO BID Cyclobenzaprine Hcl (Flexeril), 10 MG PO QID Levothyroxine Sodium (Levothyroxine Sodium), 1 TAB PO QAM [place]-3 Fatty Acids ([place] Oil-1000), 1,000 MG PO QAM Scheduled PRN Oxycodone/Acetaminophen 5MG/325MG (Percocet 5MG/325MG), 0.5-2 TABLETS PO for Pain Rizatriptan Benzoate (Maxalt), 10 MG PO DIRECTED PRN for Migraine Allergies Coded Allergies: CI Pigment Blue 63 (Verified Allergy, Severe, RASH AND SWELLING, 01/13/17) Ciprofloxacin (Verified Allergy, Severe, RED, SWOLLEN ARM, 01/13/17) Duloxetine (Verified Allergy, Severe, RASH AND SWELLING, 01/13/17) Topiramate (Verified Allergy, Mild, RASHES, 01/13/17) Gabapentin (Verified Allergy, Unknown, RASH AND SWELLING, 01/13/17) Iodinated Diagnostic Agents (Verified Allergy, Unknown, UNSURE, 01/13/17) Meloxicam (Unverified Adverse Reaction, Intermediate, Other, 04/05/17) Dry mouth Uncoded Allergies: "TISSUE DYE" (Allergy, Unknown, "unsure of reaction", 01/13/17) Physical Exam Vital Signs Date Time Temp Pulse Resp B/P (MAP) Pulse Ox O2 Delivery O2 Flow Rate FiO2 08/14/17 11:58 36.4 90 18 125/91 100 08/14/17 11:03 85 20 121/74 100 08/14/17 09:59 78 08/14/17 09:16 36.4 94 20 142/93 99 Room Air Physical Exam GENERAL: Awake, alert, well-appearing, in no acute distress HENT: Normocephalic, atraumatic. No evidence of meningitis or encephalitis. Oropharynx unremarkable. EYES: Normal conjunctiva. Sclera non-icteric. NECK: Supple. No nuchal rigidity. FROM. No JVD. RESPIRATORY: Clear to auscultation. CARDIAC: Regular rate, normal rhythm. Extremities warm and well perfused. Pulses equal. ABDOMEN: Soft, non-distended. No tenderness to palpation. No rebound or guarding. No masses. RECTAL: Deferred. MUSCULOSKELETAL: Chest examination reveals no tenderness. The back is symmetrical on inspection without obvious abnormality. There is no CVA tenderness to palpation. No joint edema. LOWER EXTREMITIES: Calves are equal size bilaterally and non-tender. No edema. No discoloration. NEURO: Normal sensorium. No sensory or motor deficits noted. SKIN: No rash or jaundice noted. Medical Decision & Procedures ER Provider Diagnostic Interpretation: Radiology results as stated below per my review and radiologist interpretation: HEAD WITHOUT CONTRAST (CT) CLINICAL HISTORY: 57 years-old Female with Pt c/o Rt eye pain. Acute headache with right eye pain TECHNIQUE: Multiple axial CT images of the head were obtained without contrast. A dose lowering technique was utilized adhering to the principles of ALARA. CT DOSE: 537.48 mGy.cm COMPARISON: CT head 05/22/2012. FINDINGS: No acute intracranial hemorrhage, midline shift, intracranial mass, hydrocephalus, territorial ischemia or abnormal extra-axial collection. Ill-defined areas of low-attenuation within the periventricular white matter suggests chronic microvascular ischemic changes. The calvarium is intact. The paranasal sinuses, mastoid air cells, and middle ear cavities are clear. Bilateral shekhar bullosa. Soft tissues are unremarkable. The orbits are symmetric and normal limits. IMPRESSION: No acute intracranial abnormality. The above report was generated using voice recognition software. It may contain grammatical, syntax or spelling errors. Electronically signed by: Jared Tolentino M.D. 08/14/2017 9:45 AM Laboratory Results 08/14/17 09:25 Red Blood Count 4.66, Mean Corpuscular Volume 86.9, Mean Corpuscular Hemoglobin 29.4, Mean Corpuscular Hemoglobin Concent 33.8, Mean Platelet Volume 8.8, Neutrophils (%) (Auto) 82.1, Lymphocytes (%) (Auto) 11.1, Monocytes (%) (Auto) 5.4, Eosinophils (%) (Auto) 0.9, Basophils (%) (Auto) 0.4, Neutrophils # (Auto) 6.07, Lymphocytes # (Auto) 0.82, Monocytes # (Auto) 0.40, Eosinophils # (Auto) 0.07, Basophils # (Auto) 0.03 08/14/17 09:25 Test 08/14/17 09:25 08/14/17 09:54 White Blood Count 7.40 K/uL (4.8-10.8) Red Blood Count 4.66 M/uL (4.2-5.4) Hemoglobin 13.7 g/dL (12.0-16.0) Hematocrit 40.5 % (37-47) Mean Corpuscular Volume 86.9 fL (80-100) Mean Corpuscular Hemoglobin 29.4 pg (25-34) Mean Corpuscular Hemoglobin Concent 33.8 g/dl (32-36) Platelet Count 320 K/uL (130-400) Mean Platelet Volume 8.8 fL (7.4-10.4) Neutrophils (%) (Auto) 82.1 % Lymphocytes (%) (Auto) 11.1 % Monocytes (%) (Auto) 5.4 % Eosinophils (%) (Auto) 0.9 % Basophils (%) (Auto) 0.4 % Neutrophils # (Auto) 6.07 K/uL (1.4-6.5) Lymphocytes # (Auto) 0.82 K/uL (1.2-3.4) Monocytes # (Auto) 0.40 K/uL (0.11-0.59) Eosinophils # (Auto) 0.07 K/uL (0-0.5) Basophils # (Auto) 0.03 K/uL (0-0.2) RDW Standard Deviation 41.0 fL (36.4-46.3) RDW Coefficient of Variation 12.9 % (11.5-14.5) Immature Granulocyte % (Auto) 0.1 % Immature Granulocyte # (Auto) 0.01 K/uL (0.00-0.02) Anion Gap 6.0 mmol/L (3-11) Est Creatinine Clear Calc Drug Dose 60.1 ml/min Estimated GFR () 79.2 Estimated GFR (Non- 68.3 BUN/Creatinine Ratio 11.9 (10-20) Calcium Level 9.0 mg/dl (8.5-10.1) Total Bilirubin 0.7 mg/dl (0.2-1) Direct Bilirubin 0.2 mg/dl (0-0.2) Aspartate Amino Transf (AST/SGOT) 23 U/L (15-37) Alanine Aminotransferase (ALT/SGPT) 23 U/L (12-78) Alkaline Phosphatase 93 U/L (45-117) Total Protein 7.5 gm/dl (6.4-8.2) Albumin 3.8 gm/dl (3.4-5.0) Lipase 66 U/L (73-393) Influenza Type A Antigen Neg for Influ A (NEG) Influenza Type B Antigen Neg for Influ B (NEG) Labs reviewed by ED physician. Medications Administered Medications (Trade) Dose Ordered Sig/Diane Route Start Time Stop Time Status Last Admin Dose Admin Sodium Chloride 1,000 ml @ 999 mls/hr Q1H1M STAT IV 08/14/17 09:23 08/14/17 10:23 DC 08/14/17 09:45 999 MLS/HR Ketorolac Tromethamine (Toradol Inj) 30 mg NOW STAT IV 08/14/17 09:23 08/14/17 09:25 DC 08/14/17 09:46 30 MG Prochlorperazine Edisylate (Compazine Inj) 10 mg NOW STAT IV 08/14/17 09:23 08/14/17 09:25 DC 08/14/17 09:46 10 MG Diphenhydramine HCl (Benadryl Inj) 50 mg NOW STAT IV 08/14/17 09:23 08/14/17 09:25 DC 08/14/17 09:46 50 MG Magnesium Sulfate (Magnesium Sulfate) 1 gm NOW STAT IV 08/14/17 09:23 08/14/17 09:25 DC 08/14/17 09:45 1 GM Sodium Chloride ([place] Nasal [place]) 2 sprays NOW STAT NA 08/14/17 10:00 08/14/17 10:01 DC 08/14/17 10:00 2 SPRAYS Valproate Sodium 500 mg/Dextrose 55 ml @ 55 mls/hr NOW STAT IV 08/14/17 10:05 08/14/17 11:04 DC 08/14/17 10:55 55 MLS/HR Dexamethasone Sodium Phosphate (Decadron Inj) 10 mg TODAY@1030 ONCE IV 08/14/17 10:30 08/14/17 10:31 DC 08/14/17 10:54 10 MG Amoxicillin/ Clavulanate Potassium (Augmentin Tab) 875 mg ONE ONCE PO 08/14/17 10:30 08/14/17 10:31 DC 08/14/17 11:01 875 MG ED Course 09: Past medical records reviewed. The patient was evaluated in room B9. A complete history and physical examination was performed. 0923: Magnesium Sulfate 1gm IV, Benadryl Inj 50mg IV, Compazine Inj 10mg IV, Toradol Inj 30mg IV, and Sodium Chloride 1000 ml @ 999 mls/hr IV. 1000: Sodium Chloride 2 sprays NA 1005: Valproate Sodium 500mg/Dextrose 55ml @ 55mls/hr IV 1030: Augmentin Tab 875mg PO and Decadron Inj 10mg IV 1115: Upon reexamination the patient is resting comfortably. I discussed results and treatment plan with the patient. She verbalizes agreement and understanding. The patient is ready for discharge. Medical Decision Differential diagnosis: Etiologies such as viral syndrome, otitis, pharyngitis, pneumonia, influenza, meningitis, urinary tract infection, sepsis, bacteremia, as well as others were entertained. This is a 57-year-old female who presents the emergency department with what appears to be a migraine headache. I will note that the patient has no evidence of meningitis or encephalitis on examination. In addition the patient does not have an elevation in her white blood cell count and has a normal renal profile. She was given a migraine cocktail here in the emergency department including normal saline bolus, Toradol, Compazine, Benadryl. Repeat examination revealed much improvement in the patient's symptoms. I do feel that the patient is well enough to be discharged home for follow-up with her primary care physician. Patient and family are in agreement with the treatment plan. In the emergency department the patient was also given Decadron to prevent headache from coming back along with valproic acid. Medication Reconcilliation Current Medication List: was personally reviewed by me Blood Pressure Screening Patient's blood pressure: Normal blood pressure Blood pressure disposition: Did not require urgent referral Impression Primary Impression: Migraine Scribe Attestation The scribe's documentation has been prepared under my direction and personally reviewed by me in its entirety. I confirm that the note above accurately reflects all work, treatment, procedures, and medical decision making performed by me. Departure Information Dispostion Home / Self-Care Prescriptions Amoxicillin & Pot Clavulanate (Augmentin 875-125 mg) 1 Tab Tab 1 TAB PO BID for 10 Days, #20 TAB Prov: Anthony Iraheta MD 08/14/17 Referrals Yon Lara M.D. (PCP) Forms HOME CARE DOCUMENTATION FORM, IMPORTANT VISIT INFORMATION Patient Instructions ED Sinusitis Abx Tx, [facility] Additional Instructions Follow up with DR Jane's office You have been examined and treated today on an emergency basis only. This is not a substitute for, or an effort to provide, complete comprehensive medical care. It is impossible to recognize and treat all injuries or illnesses in a single emergency department visit. It is therefore important that you follow up closely with Dr Chakraborty. Call as soon as possible for an appointment. Thank you for your time and consideration. I look forward to speaking with you again soon. Please don't hesitate to call us if you have any questions. Problem Qualifiers Primary Impression: Migraine Migraine type: unspecified Status migrainosus presence: without status migrainosus Intractability: not intractable Qualified Codes: G43.909 - Migraine, unspecified, not intractable, without status migrainosus
[2017-08-14] MEDS ORDERED: AMOX875T PO (11:21)
[2017-08-14 11:58] VITALS: BP 125/91; PULSE 90; TEMP 36.4; O2SAT 100
== END 2017-08-14 11:59 | disposition home or self-care (01) ==
LOC: C.EDB 09:12
DX: G43.909 Migraine, unspecified, not intractable, without status migrainosus (principal); E03.9 Hypothyroidism, unspecified; Z87.891 Personal history of nicotine dependence; Z79.899 Other long term (current) drug therapy

== ENCOUNTER → 2017-09-30 | Outpatient (CLI) | payer OTHER ==
[~2017-09-30] MED LIST changes: -MULT-506 PO
[2017-09-30 12:46] LABS: LUTEINIZING HORMONE 34.63 IU/L
[2017-09-30 12:47] LABS: FOLLICLE STIMULAT HORMONE 72.79 IU/L
== END | disposition home or self-care (01) ==
LOC: C.LAB1850 10:01
PROVIDERS: ATTEND Obstetrics & Gynecology
DX: N95.1 Menopausal and female climacteric states (principal)

== ENCOUNTER → 2018-01-10 | Outpatient (CLI) | payer OTHER ==
[~2018-01-10] MED LIST changes: +DIPH25CA65 PO; +KETO10TA PO; +PROM25TA9 PO
--- NOTE | 2018-01-10 11:06 | DIAGNOSTIC IMAGING REPORT ---
L-SPINE MIN 4 VIEWS ROUTINE CLINICAL HISTORY: LUMBAR STRAIN COMPARISON: Lumbar spine radiographs June 14, 2017. FINDINGS: The patient is status post L4-L5 discectomy, posterior decompression and bilateral pedicle screw fusion. Postoperative appearance is unchanged. Vertebral body heights are maintained. There is no fracture or suspicious lesion. Otherwise, disc spaces are preserved. There is mild multilevel endplate osteophytosis. There are cholecystectomy clips. The bowel gas pattern is normal. IMPRESSION: 1. No acute lumbar spine fracture. 2. Status post L4-L5 discectomy and bilateral pedicle screw fusion. Electronically signed by: Fran Yan M.D. 01/10/2018 11:04 AM Dictated Date/Time: 01/10/2018 11:03 AM
== END | disposition home or self-care (01) ==
LOC: C.RADBC 10:44
PROVIDERS: ATTEND Physician Assistant Medical
DX: S39.012A Strain of muscle, fascia and tendon of lower back, initial encounter (principal); X58.XXXA Exposure to other specified factors, initial encounter

== ENCOUNTER 2018-01-28 23:35 | Emergency (ER) | payer OTHER ==
[~2018-01-28] VITALS: Ht 157.5 cm; Wt 72.0 kg
[2018-01-28 23:39] VITALS: TEMP 36.8; Ht 157.5 cm; Wt 72.0 kg
[2018-01-28] MEDS ORDERED: SODIUM CHLORIDE 0.9% 1000ML 1,000 ML IV STA (23:54)
[2018-01-28] MEDS ORDERED: PROCHLORPERAZINE 5 MG/ML 2 ML VIAL IV STA (23:54)
[2018-01-28] MEDS ORDERED: DiphenhydrAMINE HCL 50 MG/ML VIAL IV STA (23:54)
[2018-01-28] MEDS ORDERED: KETOROLAC TROMETHAMINE 30 MG/ML VIAL IV STA (23:54)
[2018-01-29 01:42] VITALS: BP 110/80; PULSE 87; O2SAT 100
--- NOTE | 2018-01-29 01:48 | EMERGENCY ROOM VISIT NOTE ---
History First contact with patient: 23:46 Chief Complaint: HEADACHE Stated Complaint: MIGRAINE History of Present Illness The patient is a 57 year old female who presents to the Emergency Room with complaints of a migraine headache which started approximately 4 hours ago. She reports a history of migraines and states this is similar to previous. She sees Dr. Lara for her migraines. She took 2 doses of Maxalt without relief. She rates her discomfort a 9/10 and states it is throbbing. This is not the worst headache of her life. She denies numbness, weakness, fevers, neck pain/ stiffness, blurred vision or slurred speech. She does report associated nausea/ vomiting and photosensitivity. Review of Systems A complete 10 point review of systems was reviewed with the patient with pertinent positives and negatives as per history of present illness. All else were negative. Past Medical/Surgical History Medical Problems: (1) Anxiety State Nos (2) Baseline Right Leg Weakness (3) Cervicalgia (4) Chronic Back Problems with Multiple Surgeries (5) Depressive Disorder Nec (6) Hypothyroidism Nos (7) Lumbago (8) Migraine (9) RECOTOCELE (10) RECTOCELE (11) Sinusitis Family History Gallbladder disease Social History Smoking Status: Never Smoker Alcohol Use: none Drug Use: none Marital Status: single Housing Status: unknown Occupation Status: employed Current/Historical Medications Scheduled Cyclobenzaprine Hcl (Flexeril), 10 MG PO QID Diphenhydramine Hcl (Benadryl Allergy), 1 CAP PO DAILY Levothyroxine Sodium (Levothyroxine Sodium), 1 TAB PO QAM [place]-3 Fatty Acids (Ambrose Oil-1000), 1,000 MG PO QAM Scheduled PRN Ketorolac (Toradol), 10 MG PO DAILY PRN for Pain Oxycodone/Acetaminophen 5MG/325MG (Percocet 5MG/325MG), 0.5-2 TABLETS PO for Pain Promethazine Hcl (Phenergan), 25 MG PO Q4H PRN for Nausea Rizatriptan Benzoate (Maxalt), 10 MG PO DIRECTED PRN for Migraine Physical Exam Vital Signs Date Time Temp Pulse Resp B/P (MAP) Pulse Ox O2 Delivery O2 Flow Rate FiO2 01/29/18 01:42 87 16 110/80 100 Room Air 01/28/18 23:39 36.8 93 18 152/103 97 Room Air Physical Exam VITALS: Vitals are noted on the nurse's note and reviewed by myself. Vital signs stable. GENERAL: This is a 57-year-old female, in no acute distress, nondiaphoretic, well-developed well-nourished. SKIN: The skin was without rashes. HEAD: Normocephalic atraumatic. EARS: External auditory canals clear, tympanic membranes pearly hardy without erythema or effusion bilaterally. EYES: Pupils equal round and reactive to light and accommodation. Extraocular movements intact. MOUTH: Mucous membranes moist. NECK: Supple without nuchal rigidity. No lymphadenopathy. HEART: Regular rate and rhythm without murmurs gallops or rubs. LUNGS: Clear to auscultation bilaterally without wheezes, rales or rhonchi. MUSCULOSKELETAL: Strength 5/5 throughout. NEURO: Patient was alert and oriented to person place and time. No focal neurological deficits. Medical Decision & Procedures Medications Administered Medications (Trade) Dose Ordered Sig/Diane Route Start Time Stop Time Status Last Admin Dose Admin Sodium Chloride 1,000 ml @ 999 mls/hr Q1H1M STAT IV 01/28/18 23:54 01/29/18 00:54 DC 01/29/18 00:07 999 MLS/HR Ketorolac Tromethamine (Toradol Inj) 30 mg NOW STAT IV 01/28/18 23:54 01/28/18 23:56 DC 01/29/18 00:06 30 MG Prochlorperazine Edisylate (Compazine Inj) 10 mg NOW STAT IV 01/28/18 23:54 01/28/18 23:56 DC 01/29/18 00:06 10 MG Diphenhydramine HCl (Benadryl Inj) 25 mg NOW STAT IV 01/28/18 23:54 01/28/18 23:56 DC 01/29/18 00:07 25 MG ED Course The patient was evaluated as above. Labs were drawn and IV access was obtained. Patient was medicated with IV fluids, Toradol, Compazine and Benadryl as above. Patient was reevaluated and stated she is feeling much better at this time. Discharge instructions were reviewed with the patient. The patient verbalized understanding of my assessment and treatment plan and was discharged home in good condition. Medical Decision The differential diagnosis includes acute intracranial bleed, meningitis, encephalitis, mass or mass effect, sinusitis, infection, tumor, headache, temporal arteritis and carbon monoxide exposure, and migraine. The patient was evaluated as above. She presents with her typical migraine headache. She was given IV medications as above. She felt much better after these treatments. She was advised to follow-up with her neurologist as needed. She verbalized understanding of my assessment and treatment plan and was discharged home in good condition. Medication Reconcilliation Current Medication List: was personally reviewed by me Blood Pressure Screening Patient's blood pressure: Normal blood pressure Impression Primary Impression: Migraine Departure Information Dispostion Home / Self-Care Condition GOOD Referrals RV. eRese MD (PCP) Patient Instructions My [facility] Additional Instructions You have been treated in the Emergency Department for a Headache. You have received pain medicine in the emergency department which impairs your ability to operate a vehicle. It is illegal for you to drive after receiving these medicines. For pain control, you can use the following [id number] medicines (if >12 yo): - Regular strength (325mg/tab) Tylenol (acetaminophen) 2 tabs every 4-6 hours as needed. Do not exceed 12 tablets in a 24 hour period. Avoid taking more than 4 grams (4000 mg) of Tylenol per day. This includes any other sources of acetaminophen you may take on a regular basis. - Regular strength (200 mg/tab) Advil (ibuprofen) 1-2 tabs every 4-6 hours as needed. Do not exceed a dose of 3200 mg per day. You should relax in a quiet, dark place for the rest of the day. Avoid any possible triggers including: cigarette smoke, caffeine, nicotine, chocolate, wine, beer, loud noises or music, or bright lights. You should schedule a follow-up appointment in 2-3 days with your Primary Care Provider or established Neurologist for further evaluation and treatment of your Headache. Return to the Emergency Department if your current symptoms worsen despite treatment course outlined above, or if you develop any of the following symptoms : intractable pain despite aforementioned treatment course, visual disturbances , loss of vision, unilateral weakness or facial drooping, slurring of speech, loss of coordination, or loss of consciousness. Problem Qualifiers Primary Impression: Migraine Migraine type: unspecified Status migrainosus presence: without status migrainosus Intractability: not intractable Qualified Codes: G43.909 - Migraine, unspecified, not intractable, without status migrainosus
== END 2018-01-29 01:50 | disposition home or self-care (01) ==
LOC: C.EDB 23:36 → C.EDC 01-29 01:50
DX: G43.909 Migraine, unspecified, not intractable, without status migrainosus (principal); F41.9 Anxiety disorder, unspecified; F32.9 Major depressive disorder, single episode, unspecified; E03.9 Hypothyroidism, unspecified; Z83.79 Family history of other diseases of the digestive system; Z79.899 Other long term (current) drug therapy